=== PATIENT | female | born 1975 | race Asian ===

== ENCOUNTER 2022-02-03 23:50 | Emergency (ER) | payer MEDICAID ==
[~2022-02-03] VITALS: Ht 160 cm; Wt 76.7 kg
[2022-02-04] MEDS ORDERED: NAPR-1176 MT (02:55)
[2022-02-04] MEDS ORDERED: CYCL10TA7 MT (02:55)
[2022-02-04] MEDS ORDERED: CYCLOBENZAPRINE 10MG TABLET PO ONE (03:00)
[2022-02-04] MEDS ORDERED: KETOROLAC 30MG/ML VIAL IM ONE (03:00)
[2022-02-04 03:45] VITALS: BP 170/99
== END 2022-02-04 03:46 | disposition home or self-care (01) ==
LOC: ER 23:50
DX: S39.012A Strain of muscle, fascia and tendon of lower back, initial encounter (principal); R51.9 Headache, unspecified; V49.49XA Driver injured in collision with other motor vehicles in traffic accident, initial encounter; Y93.89 Activity, other specified; Y92.89 Other specified places as the place of occurrence of the external cause; Y99.8 Other external cause status; F32.9 Major depressive disorder, single episode, unspecified; I10 Essential (primary) hypertension
CPT/HCPCS: 96372; 99283; J1885

== ENCOUNTER 2023-02-21 10:21 | Emergency (ER) | payer MEDICAID ==
[~2023-02-21] VITALS: Ht 160 cm; Wt 72.6 kg
[~2023-02-21 10:21] MED LIST: CYCL10TA21 MT; NAPR-1176 MT
[2023-02-21 10:29] VITALS: O2SAT 98
[2023-02-21 11:22] LABS: EOSINOPHILS % 6.8 % (0.0-5.0); HEMATOCRIT. 34.2 % (36.0-48.0); HEMOGLOBIN. 11.8 g/dL (12.0-16.0); LYMPHOCYTES % 35.8 % (20.0-50.0); MEAN CORPUSCULAR VOLUME 86.7 fL (81.0-99.0); MEAN PLATELET VOLUME 6.3 fl (7.4-10.4); MONOCYTES % 7.4 % (2.0-8.0); PLATELET 371 x1000/uL (130-400); RED BLOOD CELL COUNT 3.95 mill/uL (4.2-5.4); RED CELL DISTRIBUTION WIDTH 12.8 % (11.6-14.6)
[2023-02-21 11:35] LABS: CHLORIDE 104 mEq/L (98-107)
[2023-02-21] MEDS ORDERED: KETOROLAC 30MG/ML VIAL IV ONE (12:15)
[2023-02-21] MEDS ORDERED: METOCLOPRAMIDE HCL 10MG/2ML VIAL IV ONE (12:15)
[2023-02-21] MEDS ORDERED: SODIUM CHLORIDE 0.9% 1,000 ML IV ONE (12:15)
[2023-02-21 13:59] VITALS: BP 158/99; PULSE 58; RESP 18; TEMP 97.8
== END 2023-02-21 14:41 | disposition home or self-care (01) ==
LOC: ER 10:40
DX: R51.9 Headache, unspecified (principal); I10 Essential (primary) hypertension; Z98.890 Other specified postprocedural states; Z90.49 Acquired absence of other specified parts of digestive tract; Z88.5 Allergy status to narcotic agent
CPT/HCPCS: 36415; 70450; 80053; 84484; 85025; 96361; 96374; 96375; 99285; J1885; J2765; J7030; Z7610